=== PATIENT | female | born 1970 | race Caucasian/White ===

== ENCOUNTER 2024-08-24 13:44 | Emergency (ER) | payer MEDICARE, MEDICAID, SELFPAY ==
[2024-08-24] VITALS (15 sets, daily range): BP systolic 117–144; BP diastolic 48–72; PULSE 65–66; RESP 20–32; TEMP 37.6–37.9; O2SAT 98–100; BMI 27.6
--- NOTE | 2024-08-24 13:52 | EKG_ITS ---
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
--- NOTE | 2024-08-24 13:52 | XR_ITS ---
Examination: AP chest single view Technique one AP portable semiupright chest single view Exam date and time: August 24, 2024 1559 hrs. Comparison August 19, 2024 Indications: Shortness breath chest pain coughing fever today. Findings: Moderate CHF Moderate enlargement cardiac contour Suspicious for superimposed pneumonia right upper lobe and left base Tracheostomy tube tip approximately 6 cm above vahid Left internal jugular Port-A-Cath and cardiac leads satisfactory position Impression: Moderate CHF Pneumonia right upper lobe and left base
--- NOTE | 2024-08-24 13:56 | XR_ITS ---
Examination: CT abdomen with intravenous contrast CT pelvis with intravenous contrast 2-D coronal reconstructions 2-D sagittal reconstructions Date and time of exam:August 23, 2024 at 1646 hrs. Indications: Fever unknown origin today. CTDI: vol (mGy) 18.6 DLP: (mGycm) 957 Technique: Multiple axial sections of the abdomen and pelvis have been obtained. 64 slice high-resolution scanner used. 3 mm axial sections have been obtained, post intravenous injection 60 cc Isovue-370 2-D sagittal, coronal reconstructions obtained. Low dose protocols were performed. One or more of the following dose reduction techniques were used; automated exposure control, adjustment of the mA and/or KV according to patient size, use of iterative reconstruction technique. Findings: Pneumonia left base with small left pleural effusion Moderate enlargement cardiac contour Liver mildly irregular in contour Mild splenomegaly AP dimension 13 cm, 22 mm splenic lesion No gallstones No pancreatic mass Bilateral renal calculi 16 mm calculus in the right renal pelvis with mild right hydronephrosis Moderate left hydronephrosis, 25 mm left ureteropelvic junction calculus Abdominal aortic calcification no aneurysmal dilatation Normal appendix No bowel obstruction No diverticulitis Atrophic uterus Large amounts of stool in rectum with thickening of the rectal wall Moderate osteopenia Moderate disc narrowing L5-S1 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
--- NOTE | 2024-08-24 13:56 | XR_ITS ---
Examination: CT chest with intravenous contrast 2-D sagittal and coronal reconstructions Exam date and time: August 24, 2024 1646 hrs. Indications: Fever unknown origin this week CTDI:vol (mGy) 15.5 DLP: (mGycm) 523 Technique: Multiple axial sections of the thorax have been obtained. Sections have been obtained, 3 mm slice thickness. Mediastinal and lung density settings have been obtained. Intravenous contrast administered, 60 cc Isovue-370. 2-D sagittal, coronal images obtained. Low dose protocols were performed. One or more of the following dose reduction techniques were used; automated exposure control, adjustment of the mA and/or KV according to patient size, use of iterative reconstruction technique. Findings: Tracheal tube tip 4 cm above vahid Thoracic aortic calcification no aneurysmal dilatation Nonspecific high periaortic right tracheobronchial lymph nodes No enlargement main pulmonary artery segments No gross pulmonary artery emboli Moderate enlargement cardiac contour Prominent vascular congestion with septal pulmonary edema Significant pneumonia left base as well as right upper lobe Moderate thoracic degenerative disc disease Impression: Mild to moderate CHF Significant pneumonia right upper lobe and left base
[2024-08-24 14:21] LABS: Lactate (Lactic Acid) 0.9 mMol/L (0.4-2.0)
[2024-08-24 14:25] LABS: Basophils # (Auto) 0.1 Thou/mm3 (0.0-0.2); Basophils % (Auto) 1 % (0-2.5); Eosinophils # (Auto) 0.5 Thou/mm3 (0.0-0.5); Eosinophils % (Auto) 2 % (0-10); Hematocrit 35.2 % (36.0-46.0); Hemoglobin 11.4 g/dL (12.0-16.0); Immature Granulocytes % (Auto) 10 % (0-0); Immature Granulocytes Auto 2.32 Thou/mm3 (0.00-0.00); Lymphocytes # (Auto) 3.3 Thou/mm3 (1.0-4.8); Lymphocytes % (Auto) 14 % (10-50); Mean Corpuscular HGB Conc 32.4 g/dl (31.0-37.0); Mean Corpuscular Hemoglobin 29.7 pg (25.0-35.0); Mean Corpuscular Volume 92 fL (80-100); Monocytes # (Auto) 1.1 Thou/mm3 (0.0-0.8); Monocytes % (Auto) 5 % (0-12); Neutrophils # (Auto) 16.2 Thou/mm3 (1.8-7.7); Neutrophils % (Auto) 69 % (37-80); Nucleated Red Blood Cell % 0 /100 WBC (0); Platelet Count 292 Thou/mm3 (140-440); Red Blood Count 3.84 Miln/mm3 (4.00-5.20); White Blood Count 23.6 Thou/mm3 (3.6-11.0)
--- NOTE | 2024-08-24 14:33 | EDNOTE_ITS ---
ED General RME/HPI General Chief complaint: Fever Stated complaint: FEVER Time Seen by Provider: 08/24/24 13:51 Arrival date/time: 08/24/24 13:44 RME / HPI RME / HPI narrative: DR. EDWARDS MAIN ED EVALUATION: 53 year old female presents to the Emergency Department from our subacute unit with complaint of fever intermittently since 07/2024; has been treated with antibiotics and still not resolved. This morning spiked a fever again. Symptoms are moderate. PMHx: aFib, HTN, GERD, seizures, anemia Allergies: codeine, erythromycin base, Macrolide Antibiotics, metronidazole, sulfamethoxazole, trimethoprim, buspirone, haloperidol CODE Status: DNR Related Data Home Medications ?Medication ?Instructions ?Recorded ?Confirmed enoxaparin 40 mg/0.4 mL 40 mg subcut QDAY #0 ea 11/0508/24/24 subcutaneous syringe (Lovenox) levetiracetam 100 mg/mL oral 750 mg GT BID #0 mL 11/2008/24/24 solution (Keppra) multivitamin,ct-gqxu-Gw-FA-min 1 tab feeding tube 1XD 06/12/20 08/24/24 famotidine 20 mg tablet 20 mg feeding tube 1XD 04/1708/24/24 potassium chloride 20 mEq/15 mL 10 meq feeding tube 1X D 04/17/22 08/24/24 oral liquid acetaminophen 650 mg/20.3 mL oral 650 mg PO Q4H PRN Fe timothy Or Pain 08/24/24 08/24/24 solution amlodipine 5 mg tablet 5 mg feeding tube 1XD 08/24/24 bisacodyl 10 mg rectal suppository 10 mg AK QDAY PRN C onstipation 08/24/24 08/24/24 calcium 500 mg (as 1 tab feeding tube QDAY 08/0708/24/24 carbonate)-vitamin D3 3.125 mcg (125 unit) tablet carbamide peroxide 6.5 % ear drops 10 drp otic (ear) B ID 08/24/24 08/24/24 (Debrox) ipratropium 0.5 mg-albuterol 3 mg 3 ml inhalation BID 08/24/24 08/24/24 (2.5 mg base)/3 mL nebulization soln ipratropium 0.5 mg-albuterol 3 mg 3 ml inhalation Q4H PRN Wheezing 08/24/24 08/24/24 (2.5 mg base)/3 mL nebulization soln lorazepam 2 mg/mL injection syringe 2 mg IV ASTOLERATE D PRN Seizure 08/24/24 08/24/24 Activity magnesium hydroxide 400 mg/5 mL 30 ml PO QDAY PRN Cons tipation 08/24/24 08/24/24 oral suspension (Milk of Magnesia) polyethylene glycol 3350 17 gram 17 g PO QDAY PRN Cons tipation 08/24/24 08/24/24 oral powder packet (Miralax) sodium phosphates 19 gram-7 118 ml AK QDAY PRN Constip ation 08/24/24 08/24/24 gram/197 mL enema (Fleet Enema Extra) Previous Rx's ?Medication ?Instructions ?Recorded magnesium oxide 400 mg (241.3 mg 400 mg feeding tube Q DAY #14 tabs 06/14/20 magnesium) tablet Allergies Allergy/AdvReac Type Severity Reaction Status Date / Time codeine Allergy Severe HIVES, Verified 03/02/18 05:24 VOMITING erythromycin base Allergy Severe HIVES, Verified 03/02/18 05:24 VOMITING Macrolide Antibiotics Allergy Unknown Verified 03/02/18 05:24 metronidazole Allergy Unknown Verified 03/02/18 05:24 sulfamethoxazole Allergy Unknown Hives Verified 03/02/18 05:24 trimethoprim Allergy Unknown Hives Verified 03/02/18 05:24 buspirone AdvReac Intermediate JITTERY Verified 03/02/18 05:24 haloperidol AdvReac Unknown LOCK JAW Verified 03/02/18 05:24 Review of Systems Review of Systems ROS Unobtainable: unobtainable due to medical condition Past Medical History Past Medical History NEUROLOGIC: Positive Neurological Disorders and Seizures CARDIAC: Positive Cardiac Disorders, Atrial Fibrillation and Hypertension; Negative Congestive Heart Failure RESPIRATORY: Positive Asthma (ON VENT) and Pneumonia; Negative Chronic Obstructive Pulmonary Disease (COPD) GASTROINTESTINAL: Positive Gastroesophageal Reflux Disease GENITOURINARY: Negative Renal Disease ENDOCRINE: Negative Diabetes Mellitus Type 1 or Diabetes Mellitus Type 2 HEMATOLOGIC: Positive Anemia; Negative Sickle Cell Disease Surgical History SURGICAL: Positive Pacemaker Social History SMOKING STATUS: Never smoker ED Exam Narrative Physical exam: GENERAL APPEARANCE: at baseline, plethoric appearance, mild diaphoresis, drooling VITALS: All vitals were reviewed and the pulse ox is 100% on mechanical ventilation HEENT: Normocephalic, atraumatic; pupils equal, round, reactive to light; EOMI; mucous membranes pink, moist; drooling NECK: tacheostomy in place LUNGS: CTABL; no wheezes, no rales, no rhonchi HEART: Regular rate, regular rhythm; normal S1, S2; no murmurs ABDOMEN: non distended; normal BS; soft, no tenderness, no guarding, no rebound; no masses, no organomegaly, no hernia BACK: no CVA tenderness EXTREMITIES: chronic contractures of upper and lower extremities NEUROLOGIC: at baseline PSYCHIATRIC: unobtainable SKIN: warm, dry, normal color; no rashes Course Course Course Narrative: 1800: Patient was signed out to Dr. Garcia. Past medical, surgical, social and family history reviewed. Vitals and home medications reviewed. Results and treatment plan discussed. They will assume the care of the patient at this time and will follow the patient, pending chest CT, abdomen/pelvis CT, remainder of labs, and final disposition. Quality Measures none Orders Category Date Time Status CT Screening NOW Care 08/24/24 13:56 Completed Director Of Sustainability NOW Care 08/24/24 13:52 Completed EKG (ED ONLY) *Do not use* NOW Care 08/24/24 13:52 Completed Referral - Control Systems Engineer Stat Cons 08/24/24 18:[address] abd pel w con SEPSIS LARS Stat Exams 08/24/24 13:[address] chest w con SEPSIS PROTOCOL Stat Exams 08/24/24 13:56 Completed EKG (ED Only) Stat Exams 08/24/24 13:52 Draft XR chest 1V portable Stat Exams 08/24/24 13:52 Completed B-Type Natriuretic Peptide Stat Lab 08/24/24 14:11 Completed Blood Culture (Lab) Stat Lab 08/24/24 14:11 Completed CBC Stat Lab 08/24/24 14:11 Completed Comprehensive Metabolic Panel Stat Lab 08/24/24 14:11 Completed Lactate (Lactic Acid) Stat Lab 08/24/24 14:11 Completed Lipase Stat Lab 08/24/24 14:11 Completed Magnesium Stat Lab 08/24/24 14:11 Completed Partial Thromboplastin Time Stat Lab 08/24/24 14:11 Completed Procalcitonin Stat Lab 08/24/24 14:11 Completed Prothrombin Time with INR Stat Lab 08/24/24 14:11 Completed Troponin I Stat Lab 08/24/24 14:11 Completed Urinalysis Stat Lab 08/24/24 18:44 Completed Urine Culture Stat Lab 08/24/24 18:44 Completed Piper/Tazo 3.375 gm [Zosyn] Med 08/24/24 15:07 Discontinued 3.375 gm in 50 ml IV X1 Sodium Chloride 0.9% 1000 ml [Ns] 1,000 ml Med 08/24/24 15:08 Discontinued IV 999 mls/hr Vancomycin Inj 1,000 mg Med 08/24/24 15:08 Discontinued Sodium Chloride 0.9% 250 ml [Ns] 250 ml IV X1 Vital Signs Vital signs: Vital Signs Pulse Rate 65 08/24/24 13:48 Respiratory Rate 21 H 08/24/24 13:48 Blood Pressure 143/65 H 08/24/24 13:48 Pulse Oximetry (%) 100 08/24/24 13:48 [facility] Patient data External records reviewed:: [facility] previous records (Reviewed progress note from subacute by Dr. Rich, dated 08/22/24.) Clinical information provided by:: fundraising coordinator Social determinants that could affect healthcare access:: housing (subacute) Patient has the following chronic illnesses:: PMHx: aFib, HTN, GERD, seizures, anemia Allergies: codeine, erythromycin base, Macrolide Antibiotics, metronidazole, sulfamethoxazole, trimethoprim, buspirone, haloperidol CODE Status: DNR How is presenting disease/condition affected by chronic disease/condition?: e xacerbated by Evaluation data The following diagnostics were reviewed and interpreted by me:: lab results, radiology exam(s) and EKG tracing(s) (EKG done at 1420 hours: paced, rate 65, no STEMI) Lab and/or radiology exams considered but not ordered:: none Interpretation Summary: Procedure(s): XR chest 1V portable Accession Number(s): [id number] cc: Maged Blanca MD; NO PRIMARY/FAMILY,PHYSICIAN; Farzaneh Edwards MD~ Examination: AP chest single view Technique one AP portable semiupright chest single view Exam date and time: August 24, 2024 1559 hrs. Comparison August 19, 2024 Indications: Shortness breath chest pain coughing fever today. Findings: Moderate CHF Moderate enlargement cardiac contour Suspicious for superimposed pneumonia right upper lobe and left base Tracheostomy tube tip approximately 6 cm above vahid Left internal jugular Port-A-Cath and cardiac leads satisfactory position Impression: Moderate CHF Pneumonia right upper lobe and left base Dictated By: Maged Blanca MD Medications Medications considered but not ordered:: none Medication administrations:: Medication Administration History Discontinued Medications Vancomycin HCl 1,000 mg/ (Sodium Chloride) 250 mls @ 150 mls/hr IV X1 ONE Stop: 08/24/24 16:47 Last Infusion: 08/24/24 20:00 Dose: Infused Documented By: Admin: 08/24/24 17:45 Dose: 150 mls/hr Documented By: SANGEETA Piperacillin/Tazobactam/Dextrose (Zosyn) 3.375 gm in 50 mls @ 100 mls/hr IV X1 ONE Stop: 08/24/24 15:36 Last Infusion: 08/24/24 19:05 Dose: Infused Documented By: Admin: 08/24/24 17:11 Dose: 100 mls/hr Documented By: SANGEETA Sodium Chloride (Ns) 1,000 mls @ 999 mls/hr IV .Q1H1M ONE Stop: 08/24/24 16:08 Last Infusion: 08/24/24 19:06 Dose: Infused Documented By: Admin: 08/24/24 17:08 Dose: 999 mls/hr Documented By: SANGEETA see above Consultations Consultation(s) initiated? (list below): No Diagnosis Differential Diagnosis ED Complaint MDM: fever, sepsis, pneumonia, Most likely diagnosis given after review of the tests above:: No official diagnoses at this time, still pending diagnostic tests. Patient signout to the construction project engineer provider. Admission Indicated Admission indicated?: not indicated Explain why admission is indicated or not indicated:: No final disposition plan at this time, still pending diagnostic tests. Patient signout to the construction project engineer provider. Admission Request Was there a request for admission?: No Disposition Plan Disposition Plan: other (specify) (Patient signout to the construction project engineer provider.) Medical Decision Making MDM Narrative MDM Narrative: Ginny Meza, am scribing for and in the presence of Dr. Edwards. Differential Diagnosis Differential Diagnosis: fever, sepsis, pneumonia, Lab Data 08/24/24 14:11 08/24/24 14:11 Labs: Lab Results 08/24/24 08/24/24 Range/Units 14:11 18:44 WBC 23.6 H D (3.6-11.0) Thou/mm3 RBC 3.84 L (4.00-5.20) Miln/mm3 Hgb 11.4 L (12.0-16.0) g/dL Hct 35.2 L (36.0-46.0) % MCV 92 (80-100) fL MCH 29.7 (25.0-35.0) pg MCHC 32.4 (31.0-37.0) g/dl RDW Std Deviation 47.0 H (36.4-46.3) fL Plt Count 292 D (140-440) Thou/mm3 Neut % (Auto) 69 (37-80) % Lymph % (Auto) 14 (10-50) % Jay % (Auto) 5 (0-12) % Eos % (Auto) 2 (0-10) % Baso % (Auto) 1 (0-2.5) % Neut # (Auto) 16.2 H (1.8-7.7) Thou/mm3 Lymph # (Auto) 3.3 (1.0-4.8) Thou/mm3 Jay # (Auto) 1.1 H (0.0-0.8) Thou/mm3 Eos # (Auto) 0.5 (0.0-0.5) Thou/mm3 Baso # (Auto) 0.1 (0.0-0.2) Thou/mm3 Immature Gran # (Auto) 2.32 H (0.00-0.00) Thou/mm3 Absolute Nucleated RBC 0.00 (0.00-0.00) Thou/mm3 Immature Gran % 10 H (0-0) % Nucleated RBC % 0 (0) /100 WBC PT 12.2 (9.0-12.2) Seconds INR 1.1 (0.9-1.3) APTT 31.0 (22.0-36.0) Seconds Sodium 131 L (136-145) mMol/L Potassium 4.9 (3.4-5.1) mMol/L Chloride 94 L (98-107) mMol/L Carbon Dioxide 31.0 (20.0-31.0) mMol/L Anion Gap 6 L (7-16) BUN 34 H (9-23) mg/dL Creatinine 0.7 (0.6-1.3) mg/dL Estim Creat Clear Calc Not Performed. eGFR > 60 (60 - ) See Note BUN/Creatinine Ratio 49 H (12-20) Ratio Glucose 200 H (74-106) mg/dL Calculated Osmolality 276 (275-295) Lactic Acid 0.9 (0.4-2.0) mMol/L Calcium 10.0 (8.3-10.6) mg/dL Corrected Calcium 10.0 (8.5-10.1) mg/dL Magnesium 1.8 (1.6-2.6) mg/dL Total Bilirubin 0.2 L (0.3-1.2) mg/dL AST < 8 (0-34) U/L ALT 8 L (10-49) U/L Alkaline Phosphatase 104 (46-116) U/L Troponin I < 0.020 (0.0-0.045) ng/mL B-Natriuretic Peptide 176 H (0-100) pg/mL Total Protein 7.4 (5.7-8.2) gm/dL Albumin 4.0 (3.5-5.0) gm/dL Globulin 3.4 (2.3-3.5) gm/dL Albumin/Globulin Ratio 1.2 (1.2-2.2) Lipase 35 (12-53) U/L Procalcitonin 0.24 (0.0-0.49) ng/ml Ur Collection Type Clean Catch Urine Color Yellow (Lt Yel-Yel) Urine Clarity Clear (Clear/Hazy) Urine pH 7.0 (5.0-7.0) Ur Specific [place] 1.032 (1.001-1.035) Urine Protein Negative (Neg - Trace) Urine Glucose (UA) Negative (Negative) Urine Ketones Negative (Negative) Urine Blood Negative (Negative) Urine Nitrite Negative (Negative) Urine Bilirubin Negative (Negative) Urine Urobilinogen (Auto) Negative (0.0-1.0) mg/dL Ur Leukocyte Esterase Positive (Negative) Urine RBC 1 (0-3) /hpf Urine WBC 23 H (0-5) /hpf Ur Squamous Epith Cells 1 (0-5) /hpf Urine Bacteria None (None) Discharge Plan Prescriptions/Referrals Prescriptions/Med Rec: No Action enoxaparin [Lovenox] 40 MG/0.4 ML syringe 40 mg Sub-Q QDAY Qty: 0 levetiracetam [Keppra] 100 MG/ML solution 750 mg GT BID Qty: 0 multivitamin,kh-onwg-Ac-FA-min Tablet 1 tab feeding tube 1XD magnesium oxide 400 mg (241.3 mg magnesium) Tablet 400 mg feeding tube QDAY Qty: 14 0RF potassium chloride 20 mEq/15 mL liquid 10 meq feeding tube 1XD famotidine 20 mg tablet 20 mg feeding tube 1XD amlodipine 5 mg tablet 5 mg feeding tube 1XD ipratropium-albuterol [DuoNeb] 0.5 mg-3 mg(2.5 mg base)/3 mL Solution For Nebulization 3 ml INHALATION Q4H PRN (Reason: Wheezing) ipratropium-albuterol [DuoNeb] 0.5 mg-3 mg(2.5 mg base)/3 mL Solution For Nebulization 3 ml INHALATION BID bisacodyl 10 mg Suppository 10 mg AK QDAY PRN (Reason: Constipation) Debrox 6.5 % Drops 10 drp OTIC (EAR) BID lorazepam 2 mg/mL Syringe 2 mg IV ASTOLERATED PRN (Reason: Seizure Activity) Rx Instructions: May repeat x 1 calcium carbonate-vitamin D3 [Calcium 500 + D (D3)] 500 mg-3.125 mcg (125 unit) Tablet 1 tab feeding tube QDAY acetaminophen 650 mg/20.3 mL Solution 650 mg PO Q4H PRN (Reason: Fever Or Pain) Fleet Enema Extra 19-7 gram/197 mL Enema 118 ml AK QDAY PRN (Reason: Constipation) polyethylene glycol 3350 [Miralax] 17 gram Powder In Packet 17 g PO QDAY PRN (Reason: Constipation) magnesium hydroxide [Milk of Magnesia] 400 mg/5 mL Suspension 30 ml PO QDAY PRN (Reason: Constipation) Referrals: No Primary/Family,Physician [Primary Care Provider] - In 1 week Problem List Clinical Impression: Fever Patient/Caregiver Discharge Instructions Print Language: [place] Island[place]
[2024-08-24 14:41] LABS: B-Type Natriuretic Peptide 176 pg/mL (0-100); INR 1.1 (0.9-1.3); Prothrombin Time 12.2 Seconds (9.0-12.2)
[2024-08-24 14:56] LABS: Alanine Aminotransferase 8 U/L (10-49); Albumin/Globulin Ratio 1.2 (1.2-2.2); Alkaline Phosphatase 104 U/L (46-116); Anion Gap 6 (7-16); Aspartate Amino Transferase < 8 U/L (0-34); BUN/Creatinine Ratio 49 Ratio (12-20); Bilirubin,Total 0.2 mg/dL (0.3-1.2); Blood Urea Nitrogen 34 mg/dL (9-23); Chloride 94 mMol/L (98-107); Creatinine (Component) 0.7 mg/dL (0.6-1.3); Globulin 3.4 gm/dL (2.3-3.5); Glucose 200 mg/dL (74-106); Lipase 35 U/L (12-53); Magnesium 1.8 mg/dL (1.6-2.6); Osmolality,Calculated 276 (275-295); Potassium 4.9 mMol/L (3.4-5.1); Procalcitonin 0.24 ng/ml (0.0-0.49); Sodium 131 mMol/L (136-145); Total Protein 7.4 gm/dL (5.7-8.2); Troponin I < 0.020 ng/mL (0.0-0.045); eGFR > 60 See Note
[2024-08-24] MEDS: SODIUM CHLORIDE 0.9% 1000 ML 1,000 ML 999 ML IV (17:08)
[2024-08-24] MEDS: PIPER/TAZO 3.375 GM 3.375 GM/50 ML BAG IV (17:11)
[2024-08-24] MEDS: Vancomycin Inj 1,000 MG in SODIUM CHLORIDE 0.9% 250 ML 250 ML 150 MG IV (17:45)
--- NOTE | 2024-08-24 18:26 | EDNOTE_ITS ---
Emergency Room Addendum Addendum Narrative: 1800 care assumed by previous shift provider. Past medical, surgical, social and family history reviewed. Vitals and home medications reviewed. Results and treatment plan discussed. I will assume the care of the patient at this time and will follow the patient, pending final disposition. On my encounter and the patient, she is bedbound, but awake, alert, she does seem to respond to name. She is nonverbal on the vent, minimal settings, SIMV at FiO2 of 40%. I do not appear to get any notable acknowledgment as to whether or not she is in pain. On my abdominal exam she does not appear to be in pain with deep palpation On review of the medical record she has primarily reduced while in the LTAC center noting for the last 2 weeks intermittent fevers. On our visit she has a Tmax of 101.2, however we do have records from the LTAC showing a Tmax of 103.8 over the last 2 weeks. It appears that she had laboratory testing sent starting August 16 where she did have a leukocytosis at 28,000 and blood cultures and urine cultures were sent which have no growth to date. Per the notes it would appear that she was started on some antibiotics per the physician note and repeat testing on August 19 shows normalization of the leukocytosis to 10,000. However it would appear despite the antibiotics the leukocytosis is now trending back up to 18,000 yesterday and today it is back up to 24,000. She has left shift no bands. Renal function is within normal limits. Sepsis testing such as lactic acid and procalcitonin returned within normal limits. I reviewed the CT scan images myself and she has to large obstructing stones bilaterally, on the left it is at the UPJ causing significant hydronephrosis from the pelvis up to the kidney, and then the right is in the pelvis with some mild hydronephrosis as well. CT scan of the chest does show some mild inte rstitial markings in the lungs, however she is on minimal vent settings, this can be related to her chronic pulmonary complaints, however this does not appear to have a significant change today on her ventilator requirements. At this point the likely the source right now for her fever would be the obstructive uropathy from kidney stones. At this point she has a significant and concerning leukocytosis, however lactic acid and procalcitonin are at this point normal and could be related to her being on antibiotics. Given the obstructive uropathy has a most likely source and being bilateral, we do not have urology or IR, will seek transfer for higher level care with urology/IR 2200: Accepted at [facility], Dr. Paris/urology.
[2024-08-24 18:50] LABS: Collection Type, Urine Clean Catch
[2024-08-24 18:57] LABS: Bilirubin,Urine Negative (Negative); Blood,Urine Negative (Negative); Clarity,Urine Clear (Clear/Hazy); Color,Urine Yellow (Lt Yel-Yel); Glucose, Urine Negative (Negative); Ketones,Urine Negative (Negative); Leukocyte Esterase,Urine Positive (Negative); Nitrite,Urine Negative (Negative); Protein,Urine Negative (Neg - Trace); RBC,Urine 1 /hpf (0-3); Specific Gravity,Urine 1.032 (1.001-1.035); Squamous Epithelial Cell,Urine 1 /hpf (0-5); Urobilinogen,Urine Negative mg/dL (0.0-1.0); WBC,Urine 23 /hpf (0-5)
--- NOTE | 2024-08-24 19:17 | PC.CM ---
I received a referral at the end of my shift. I spoke to charge nurse and I let her know they need to work on transfer because I was getting ready to leave.
--- NOTE | 2024-08-24 20:00 | PC.NURSE ---
[facility]ANCE [facility]KINS FAXED PAPERWORK FOR POSSIBLE UROLOGY TRANSFER, SPOKE DENNIS TESFAYE
--- NOTE | 2024-08-24 22:23 | PC.NURSE ---
ACCEPTED [facility], SPOKE WITH MERA, JOAQUINA TO ER #[phone], DR OLIVER, KEEP PATIENT NPO AFTER MIDNIGHT
--- NOTE | 2024-08-24 23:11 | PC.NURSE ---
SPOKE WITH [facility] WHICH ARE NEXT OF KIN AND PERSON TO NOTIFY AND THEY GAVE THEIR PERMISSION VIA TELEPHONE TO TRANSPORT PATIENT TO [facility] VIA [facility]ANCE, CHENTE-RN WITNESSED CONVERSATION
[2024-08-25 00:09] VITALS: BP 135/58; PULSE 65; RESP 22; TEMP 37.6; O2SAT 98
== END 2024-08-25 00:33 | disposition short-term general hospital (02) ==
PROVIDERS: Emergency Medicine; Emergency Provider Emergency Medicine
DX: R50.9 Fever, unspecified (principal); Z66 Do not resuscitate; N13.2 Hydronephrosis with renal and ureteral calculous obstruction
CPT/HCPCS: 36415; 71045; 71260; 74177; 80053; 81001; 83605; 83690; 83735; 83880; 84145; 84484; 85025; 85610; 85730; 87040; 87077; 87086; 87106; 87186; 93005; 96360; 96361; 96365; 96366; 96367; 99285; A4649; J2543; J3371; J7030; J7050; Q9967

== ENCOUNTER 2024-09-27 11:21 | Day surgery (SDC) | payer MEDICARE, MEDICAID, SELFPAY ==
[2024-09-27] VITALS (9 sets, daily range): BP systolic 111–146; BP diastolic 57–72; PULSE 60–66; RESP 14–25; TEMP 36.7; O2SAT 96–100
[2024-09-27] MEDS: DEXTROSE 5%-0.45% NS 500 ML 50 ML IV (12:15)
[2024-09-27] MEDS: VANCOMYCIN/NS 1 GM IVPB 200 ML IV (14:15)
[2024-09-27] MEDS: DiphenhydrAMINE INJ 50 MG/ML VIAL IV (16:00)
[2024-09-27] MEDS: HYDROCORTISONE SOD SUCC INJ 100 MG VIAL 80 MG IV (16:00)
[2024-09-27] MEDS: HEPARIN SOD LOCK SYR 100 UNIT/ML 500 UNIT IV (16:14)
--- NOTE | 2024-09-27 16:46 | ESOP_ITS ---
RE: KIAN MALDONADO : 1970 DATE OF OPERATION: 09/27/2024 PROCEDURE PERFORMED: Removal and replacement of single chamber permanent pacemaker implantation. DIAGNOSES: Atrial fibrillation, slow ventricular response, sick sinus syndrome, symptomatic bradycardia, status post pacemaker implantation with elective replacement indicative of battery depletion. POSTOPERATIVE DIAGNOSES: Successful removal of the old Medtronic pacemaker generator, replacement using new Medtronic single chamber permanent pacemaker. HISTORY AND INDICATIONS: The patient is a 54-year-old female with a past medical history of multiple medical problems, atrial fibrillation, disability, and the patient is in persistent vegetative state for several years and ventilator and PEG tube. Had a pacemaker implanted initially in 1996, has pacemaker last implant was in 2017. Pacemaker has reached elective reserve indicator battery depletion. The patient is pacemaker dependent, hence permanent pacemaker implantation, removal and replacement of the permanent pacemaker generator was recommended because of underlying pacemaker dependency, bradycardia, and pacemaker generator battery depletion. DESCRIPTION OF PROCEDURE: The patient was brought to cardiac catheterization laboratory. Conscious sedation 1 mg versed 25 mcg fentanyl was given Right subclavian area prepared in a sterile fashion, 1% lidocaine local anesthesia was given. A linear incision was made with a blunt dissection, pocket was opened. Pacemaker was removed. Capsule was resected. Threshold was found to be excellent. I attached the new generator with a single chamber permanent pacemaker generator. It is a dual chamber device, but the atrial lead pin is plugged. The generator was positioned in the pocket. Subcutaneous incision was closed using 2-0 chromic continuous suture. Skin was closed using brook. The patient tolerated the operation very well with no complications. The patient was given a gram of Ancef pre-procedure, during procedure intraoperatively and also 1 gram vancomycin given postprocedure. SUMMARY OF FINDINGS: Successful removal and replacement of single chamber permanent pacemaker. No complications. The patient belongs to subacute unit. After observation for two hours, she can be transferred back to subacute unit. This procedure was done as an outpatient procedure. The device that is removed was Adapta. Serial number is [id number], date of implant 06/23/2017. Device that is implanted today MRI safe Chaya XTDR serial number is [id number]. The right ventricular lead is 4024 Medtronic, initially implanted on 01/23/1997. The threshold R waves are measured 5.4 volts. the threshold is 2 volts. Lead impendence is 500 ohms. DT: 15:44:44 TT: 16:21:00 Ref: [id number] - TID: [id number] MTDD
== END 2024-09-27 16:30 | disposition home health service (06) ==
PROVIDERS: Referring Provider Internal Medicine Cardiovascular Disease; Visit Provider Internal Medicine Cardiovascular Disease
PROC: (CPT 33227; principal; 2024-09-27 13:00)
DX: Z45.010 Encounter for checking and testing of cardiac pacemaker pulse generator [battery] (principal); I49.5 Sick sinus syndrome; I48.91 Unspecified atrial fibrillation
CPT/HCPCS: 33227; 80048; 85025; 85610; 85730; 99152; 99153; A4649; C1785; J0171; J0461; J0690; J1200; J1642; J1720; J2250; J2310; J2371; J3010; J3370; J3490; J7042